=== PATIENT | male | born 1975 | race Caucasian/White ===

== ENCOUNTER 2019-06-26 12:34 | Emergency (ER) | payer OTHER ==
[2019-06-26] MEDS ORDERED: FENTANYL CITR 100 MCG/2 ML ONE (12:41)
[2019-06-26] MEDS ORDERED: TETANUS & DIPHTHERIA TOX,ADULT 0.5 ML VIAL ONE (12:41)
[2019-06-26 13:17] LABS: Absolute Lymphocytes (CBC) 1.3 K/uL (0.7-4.9); Basophils % 0.4 % (0-1.3); Hematocrit 40.8 % (39.6-49.0); Lymphocytes % 19.2 % (15.3-44.8); MPV 7.6 fL (7.6-11.3); RBC Red Blood Cell Count 4.66 M/uL (4.33-5.43)
[2019-06-26 13:31] LABS: BUN Blood Urea Nitrogen 17 mg/dL (7-18); Bicarbonate 25 mmol/L (21-32); Glucose Level 101 mg/dL (74-106); Potassium 3.8 mmol/L (3.5-5.1); Sodium Level 136 mmol/L (136-145)
[2019-06-26] MEDS ORDERED: NA CHLORIDE 0.9% 500 ML ONE (13:32)
--- NOTE | 2019-06-26 13:50 | RAD REPORT ---
EXAM DESCRIPTION: CT - Head C Spine Cap Lisa Comer - 06/26/2019 1:34 pm CLINICAL HISTORY: Fall, head and neck injury, chest abdomen and pelvis pain COMPARISON: None. TECHNIQUE: Axial [address] head images were obtained. Axial [address] cervical spine images were obtaine d with sagittal and coronal reconstruction images reviewed. During dynamic enhancement of 100mL non-i onic contrast, axial 5 mm images of the chest, abdomen and pelvis were obtained. All CT scans are performed using dose optimization technique as appropriate and may include automated exposure control or mA/KV adjustment according to patient size. FINDINGS: No intracranial hemorrhage, mass or edema. No midline shift or abnormal fluid collection. Mastoid air cells and paranasal sinuses are clear. No skull fracture. CT cervical spine imaging shows normal height. Normal alignment of the vertebrae. No disc space narro wing. No paraspinal mass or hematoma seen. Central canal detail is inherently limited. Concerns for t raumatic disc herniation or traumatic cord injury can be further addressed with MR imaging. CT chest shows no pneumothorax, pulmonary contusion or pleural fluid collection. No mediastinal hemat jamel and the aorta and pulmonary arteries are unremarkable. No chest will mass or abnormal axillary fi nding. No displaced rib fracture or other significant bony finding. CT abdomen and pelvis show no injury to solid abdominal viscera. Gallbladder and biliary tree are unr emarkable. No bowel injury or significant finding. No free air, free fluid or abnormal stranding. No urinary bladder abnormality. No compression fracture. L5-S1 disc and bone degenerative changes are present. IMPRESSION: No hemorrhage, edema or acute CT Head finding. No significant CT Cervical Spine finding. No significant CT Chest finding. No significant CT Abdomen and Pelvis finding.
[2019-06-26] MEDS ORDERED: HYDROCODONE/APAP 7.5/325 MG TAB ONE (14:40)
--- NOTE | 2019-06-26 14:43 | ER ---
Nurse's Notes [facility] Name: Ming Burt Age: 43 yrs Sex: Male : 1975 Arrival Date: 06/26/2019 Time: 12:37 Bed 3 Private MD: Diagnosis: Chest pain, unspecified;Other chest pain;Pain in left forearm;Abrasion of back wall of thorax;Abrasion of left forearm Presentation: 06/26 12:30 Presenting complaint: EMS states: pt was cutting a tree and the tree limb fell on tip jl7 of him, c/o left wrist, arm, chest and back pain. Care prior to arrival: Cervical collar in place. Splint applied. Medication(s) given: Tylenol, 1000 mg, IVP IV initiated. 20 GA, in the right hand. Mechanism of Injury: Crush injury from tree that had unknown weight. Extrication was not required. Patient was trapped for seconds. Trauma event details: Injury occurred in the [facility], Injury occurred: at home. Injury occurred: June 26, 2019 Injury occurred at: 11:25. 12:30 Acuity: MILLA 2 jl7 12:30 Method Of Arrival: [facility] jl7 12:30 Transition of care: patient was not received from another setting of care. Onset of jl7 symptoms was June 26, 2019 at 11:25. Risk Assessment: Do you want to hurt yourself or someone else? Patient reports no desire to harm self or others. Initial Sepsis Screen: Does the patient meet any 2 criteria? No. Patient's initial sepsis screen is negative. Does the patient have a suspected source of infection? No. Patient's initial sepsis screen is negative. Trauma Activation: Alert Physician: ED Physician; Name: ; Notified At: ; Arrived At: Physician: General Surgeon; Name: ; Notified At: ; Arrived At: Physician: Radiology; Name: ; Notified At: ; Arrived At: Physician: Respiratory; Name: ; Notified At: ; Arrived At: Physician: Lab; Name: ; Notified At: ; Arrived At: Historical: - Allergies: 13:25 No Known Allergies; jl7 - Home Meds: 13:25 unknown cholesterol medication [Active]; jl7 - PMHx: 13:25 High Cholesterol; jl7 - PSHx: 13:25 None; jl7 - Immunization history: Last tetanus immunization: unknown. - Social history:: Smoking status: Patient uses tobacco products, chewing tobacco. - Ebola Screening: : No symptoms or risks identified at this time. Screenin:00 Abuse screen: Denies threats or abuse. Denies injuries from another. Tuberculosis jl7 screening: No symptoms or risk factors identified. 13:27 Nutritional screening: No deficits noted. Fall Risk No fall in past 12 months (0 pts). jl7 No secondary diagnosis (0 pts). IV access (20 points). Ambulatory Aid- None/Bed Rest/Nurse Assist (0 pts). Gait- Normal/Bed Rest/Wheelchair (0 pts) Mental Status- Oriented to own ability (0 pts). Total Caballero Fall Scale indicates No Risk (0-24 pts). Primary Survey: 12:30 NO uncontrolled hemorrhage observed. Breathing/Chest: Respiratory pattern: regular, jl7 Respiratory effort: spontaneous, unlabored, Breath sounds: clear, Chest inspection: symmetrical rise and fall of the chest. Circulation: Heart tones present. Pulses: palpable right radial artery and left radial artery. Skin color: pink, Skin temperature: warm. Disability Alert. Exposure/Environment: There is no evidence of uncontrolled external bleeding. Obvious injury(ies) are noted at this time: laceration noted to left forearm, road rash noted to back and redness noted to chest. 12:45 Reassessment Breathing/Chest Respiratory pattern Regular Respiratory effort Spontaneous jl7 Unlabored Breath sounds Clear Chest inspection Symmetrical. Assessment: 12:30 General: Appears in no apparent distress. uncomfortable, Behavior is calm, cooperative, jl7 appropriate for age. Pain: Complains of pain in back, chest and left arm Pain currently is 8 out of 10 on a pain scale. Quality of pain is described as aching, Pain began 1 day ago. Is continuous. Neuro: Level of Consciousness is awake, alert, obeys commands, Oriented to person, place, time, situation. EENT: No signs and/or symptoms were reported regarding the EENT system. Cardiovascular: Heart tones present Patient's skin is warm and dry. Pulses are palpable in left radial artery. Respiratory: Airway is patent Respiratory effort is even, unlabored, Respiratory pattern is regular, symmetrical, Breath sounds are clear bilaterally. Derm: Skin is pink, warm \T\ dry. 13:30 Reassessment: Patient appears in no apparent distress at this time. No changes from jl7 previously documented assessment. Patient and/or family updated on plan of care and expected duration. Pain level reassessed. Patient is alert, oriented x 3, equal unlabored respirations, skin warm/dry/pink. 14:30 Reassessment: Patient appears in no apparent distress at this time. No changes from jl7 previously documented assessment. Patient and/or family updated on plan of care and expected duration. Pain level reassessed. Patient is alert, oriented x 3, equal unlabored respirations, skin warm/dry/pink. Vital Signs: 12:40 BP 132 / 89; Pulse 70; Resp 16 S; Temp 98.3(O); Pulse Ox 98% on R/A; Weight 74.84 kg jl7 (R); Height 5 ft. 5 in. (165.10 cm) (R); Pain 7/10; 13:00 BP 122 / 83; Pulse 65; Resp 17 S; Pulse Ox 98% on R/A; jl7 13:30 BP 125 / 80; Pulse 64; Resp 16 S; Pulse Ox 100% on R/A; jl7 14:30 BP 126 / 80; Pulse 65; Resp 16 S; Pulse Ox 100% on R/A; jl7 12:40 Body Mass Index 27.46 (74.84 kg, 165.10 cm) jl7 [place] Coma Score: 12:30 Eye Response: spontaneous(4). Verbal Response: oriented(5). Motor Response: obeys jl7 commands(6). Total: 15. Trauma Score (Adult): 12:30 Eye Response: spontaneous(1); Verbal Response: oriented(1); Motor Response: obeys jl7 commands(2); Systolic BP: > 89 mm Hg(4); Respiratory Rate: 10 to 29 per min(4); Lakeisha Score: 15; Trauma Score: 12 13:00 Eye Response: spontaneous(1); Verbal Response: oriented(1); Motor Response: obeys jl7 commands(2); Systolic BP: > 89 mm Hg(4); Respiratory Rate: 10 to 29 per min(4); Lakeisha Score: 15; Trauma Score: 12 13:30 Eye Response: spontaneous(1); Verbal Response: oriented(1); Motor Response: obeys jl7 commands(2); Systolic BP: > 89 mm Hg(4); Respiratory Rate: 10 to 29 per min(4); Lakeisha Score: 15; Trauma Score: 12 14:30 Eye Response: spontaneous(1); Verbal Response: oriented(1); Motor Response: obeys jl7 commands(2); Systolic BP: > 89 mm Hg(4); Respiratory Rate: 10 to 29 per min(4); [place] Score: 15; Trauma Score: 12 ED Course: 12:30 ED physician to see patient. jl7 12:37 Patient arrived in ED. iw 12:39 Lukas Chau MD is Attending Physician. kdr 12:46 Willie Dockery RN is Primary Nurse. jl7 12:56 Triage completed. jl7 13:00 Patient has correct armband on for positive identification. Bed in low position. Call jl7 light in reach. Side rails up X 1. 13:00 security monitor on. Pulse ox on. NIBP on. jl7 13:00 Patient maintains SpO2 saturation greater than 95% on room air. Thermoregulation: warm jl7 blanket given to patient. 13:00 No provider procedures requiring assistance completed. Maintain EMS IV. Dressing jl7 intact. Good blood return noted. Site clean \T\ dry. Gauge \T\ site: 20 right hand. 13:11 Forearm Left XRAY In Process Unspecified. EDMS 13:13 Shoulder Left (2 View) XRAY In Process Unspecified. EDMS 13:25 Arm band placed on right wrist. jl7 13:34 CT Traumagram (Head C Spine CAP W Con) In Process Unspecified. EDMS 13:34 CT completed. Patient tolerated procedure well. Patient moved back from CT. bq 15:14 Initial lab(s) drawn, by ny, sent to lab. IV discontinued, intact, bleeding controlled, jl7 No redness/swelling at site. Pressure dressing applied. Administered Medications: 12:50 Drug: Tetanus-Diphtheria Toxoid Adult 0.5 ml {[employer] Worker: [employer]. Exp: jl7 01/06/2021. Lot #: [id number]. } Route: IM; Site: right deltoid; 13:37 Follow up: Response: No adverse reaction jl7 12:50 Drug: fentaNYL (PF) 50 mcg Route: IVP; Site: right hand; jl7 13:00 Follow up: Response: No adverse reaction; Pain is decreased jl7 12:50 Drug: Zofran 4 mg Route: IVP; Site: right hand; jl7 13:00 Follow up: Response: No adverse reaction jl7 13:20 Drug: fentaNYL (PF) 50 mcg Route: IVP; Site: right hand; jl7 13:35 Follow up: Response: No adverse reaction; Pain is decreased jl7 14:15 Drug: NS 0.9% 500 ml Route: IV; Rate: bolus; Site: right hand; jl7 15:10 Follow up: Response: No adverse reaction; IV Status: Completed infusion; IV Intake: jl7 100ml 14:43 Drug: Francitas (7.5 mg-325 mg) 1 tabs Route: PO; jl7 15:10 Follow up: Response: No adverse reaction; Medication administered at discharge. jl7 Intake: 15:10 IV: 100ml; Total: 100ml. jl7 15:15 PO: 0ml; IV: 0ml; Tubes: 0ml (); Total: 100ml. jl7 Output: 15:15 Urine: 0ml; Gastric: 0ml; Stool: 0; EBL: 0ml; Drainage: 0ml; Other: 0; Total: 0ml. jl7 Outcome: 14:42 Discharge ordered by MD. kdr 15:14 Discharged to home ambulatory, with family. jl7 15:14 Condition: stable 15:14 Discharge instructions given to patient, family, Instructed on discharge instructions, follow up and referral plans. medication usage, Demonstrated understanding of instructions, follow-up care, medications, Prescriptions given X 2. 15:15 Patient's length of stay was not longer than 2 hours. jl7 15:15 Patient left the ED. jl7 Signatures: Dispatcher [employer] EDMS Lukas Chau MD MD kdr Quilty, Betty bq Williams, Irene, RN RN iw Leal, Jahala, RN RN bhakti
--- NOTE | 2019-06-26 14:43 | EDPHYS ---
Physician Documentation [facility] Name: Ming Burt Age: 43 yrs Sex: Male : 1975 Arrival Date: 06/26/2019 Time: 12:37 Bed 3 Private MD: ED Physician Lukas Chau HPI: 06/26 14:56 This 43 yrs old Male presents to ER via EMS with complaints of back and left kdr arm pain. 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 Onset: The kdr symptoms/episode began/occurred suddenly, just prior to arrival. Associated injuries: The patient sustained upper back injury, dorsal aspect of left forearm and palmar aspect of left forearm, abrasion. Severity of symptoms: in the emergency department the symptoms are unchanged. The patient has not experienced similar symptoms in the past. The patient has not recently seen a physician. 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 Historical: - Allergies: 13:25 No Known Allergies; jl7 - Home Meds: 13:25 unknown cholesterol medication [Active]; jl7 - PMHx: 13:25 High Cholesterol; jl7 - PSHx: 13:25 None; jl7 - Immunization history: Last tetanus immunization: unknown. - Social history:: Smoking status: Patient uses tobacco products, chewing tobacco. - Ebola Screening: : No symptoms or risks identified at this time. ROS: 14:56 Constitutional: Negative for fever, chills, and weight loss, Eyes: Negative for injury, kdr pain, redness, and discharge, ENT: Negative for injury, pain, and discharge, Neck: Negative for injury, pain, and swelling, Cardiovascular: Negative for chest pain, palpitations, and edema, Respiratory: Negative for shortness of breath, cough, wheezing, and pleuritic chest pain, Abdomen/GI: Negative for abdominal pain, nausea, vomiting, diarrhea, and constipation, : Negative for injury, bleeding, discharge, and swelling, Skin: Negative for rash, and discoloration, He does have multiple abrasions to his back and left Neuro: Negative for headache, weakness, numbness, tingling, and seizure activity. Psych: Negative for depression, anxiety, suicide ideation, homicidal ideation, and hallucinations, Allergy/Immunology: Negative for hives, rash, and allergies, Endocrine: Negative for neck swelling, polydipsia, polyuria, polyphagia, and marked weight changes, Hematologic/Lymphatic: Negative for swollen nodes, abnormal bleeding, and unusual bruising. 14:56 Back: Positive for pain at rest, pain with movement. Exam: 18:37 Constitutional: This is a well developed, well nourished patient who is awake, alert, kdr and in no acute distress. Head/Face: Normocephalic, atraumatic. Eyes: Pupils equal round and reactive to light, extra-ocular motions intact. Lids and lashes normal. Conjunctiva and sclera are non-icteric and not injected. Cornea within normal limits. Periorbital areas with no swelling, redness, or edema. Neck: Trachea midline, no thyromegaly or masses palpated, and no cervical lymphadenopathy. Supple, full range of motion without nuchal rigidity, or vertebral point tenderness. No Meningismus. Chest/axilla: Normal chest wall appearance and motion. Nontender with no deformity. No lesions are appreciated. Cardiovascular: Regular rate and rhythm with a normal S1 and S2. No gallops, murmurs, or rubs. Normal PMI, no JVD. No pulse deficits. Respiratory: Lungs have equal breath sounds bilaterally, clear to auscultation and percussion. No rales, rhonchi or wheezes noted. No increased work of breathing, no retractions or nasal flaring. Abdomen/GI: Soft, non-tender, with normal bowel sounds. No distension or tympany. No guarding or rebound. No evidence of tenderness throughout. Neuro: Awake and alert, GCS 15, oriented to person, place, time, and situation. Cranial nerves II-XII grossly intact. Motor strength 5/5 in all extremities. Sensory grossly intact. Cerebellar exam normal. Normal gait. Psych: Awake, alert, with orientation to person, place and time. Behavior, mood, and affect are within normal limits. 18:37 Back: The patient has multiple abrasions to his left back. 18:37 Musculoskeletal/extremity: The patient has abrasions to the left forearm and generally tender to palp - no current s/s of compartment syndrome. Vital Signs: 12:40 BP 132 / 89; Pulse 70; Resp 16 S; Temp 98.3(O); Pulse Ox 98% on R/A; Weight 74.84 kg jl7 (R); Height 5 ft. 5 in. (165.10 cm) (R); Pain 7/10; 13:00 BP 122 / 83; Pulse 65; Resp 17 S; Pulse Ox 98% on R/A; jl7 13:30 BP 125 / 80; Pulse 64; Resp 16 S; Pulse Ox 100% on R/A; jl7 14:30 BP 126 / 80; Pulse 65; Resp 16 S; Pulse Ox 100% on R/A; jl7 12:40 Body Mass Index 27.46 (74.84 kg, 165.10 cm) jl7 Lakeisha Coma Score: 12:30 Eye Response: spontaneous(4). Verbal Response: oriented(5). Motor Response: obeys jl7 commands(6). Total: 15. Trauma Score (Adult): 12:30 Eye Response: spontaneous(1); Verbal Response: oriented(1); Motor Response: obeys jl7 commands(2); Systolic BP: > 89 mm Hg(4); Respiratory Rate: 10 to 29 per min(4); Preble Score: 15; Trauma Score: 12 13:00 Eye Response: spontaneous(1); Verbal Response: oriented(1); Motor Response: obeys jl7 commands(2); Systolic BP: > 89 mm Hg(4); Respiratory Rate: 10 to 29 per min(4); Lakeisha Score: 15; Trauma Score: 12 13:30 Eye Response: spontaneous(1); Verbal Response: oriented(1); Motor Response: obeys jl7 commands(2); Systolic BP: > 89 mm Hg(4); Respiratory Rate: 10 to 29 per min(4); Preble Score: 15; Trauma Score: 12 14:30 Eye Response: spontaneous(1); Verbal Response: oriented(1); Motor Response: obeys jl7 commands(2); Systolic BP: > 89 mm Hg(4); Respiratory Rate: 10 to 29 per min(4); Preble Score: 15; Trauma Score: 12 MDM: 14:42 Patient medically screened. kdr 18:37 Data reviewed: vital signs, nurses notes, lab test result(s), EKG, radiologic studies. kdr Counseling: I had a detailed discussion with the patient and/or guardian regarding: the historical points, exam findings, and any diagnostic results supporting the discharge/admit diagnosis, lab results, radiology results, the need for outpatient follow up. 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 Exp: jl7 01/06/2021. Lot #: [id number]. } Route: IM; Site: right deltoid; 13:37 Follow up: Response: No adverse reaction jl7 12:50 Drug: fentaNYL (PF) 50 mcg Route: IVP; Site: right hand; jl7 13:00 Follow up: Response: No adverse reaction; Pain is decreased jl7 12:50 Drug: Zofran 4 mg Route: IVP; Site: right hand; jl7 13:00 Follow up: Response: No adverse reaction jl7 13:20 Drug: fentaNYL (PF) 50 mcg Route: IVP; Site: right hand; jl7 13:35 Follow up: Response: No adverse reaction; Pain is decreased jl7 14:15 Drug: NS 0.9% 500 ml Route: IV; Rate: bolus; Site: right hand; jl7 15:10 Follow up: Response: No adverse reaction; IV Status: Completed infusion; IV Intake: jl7 100ml 14:43 Drug: Beresford (7.5 mg-325 mg) 1 tabs Route: PO; jl7 15:10 Follow up: Response: No adverse reaction; Medication administered at discharge. jl7 Disposition: 06/26/19 14:42 Discharged to Home. Impression: Chest pain, unspecified, Other chest pain, Pain in left forearm, Abrasion of back wall of thorax, Abrasion of left forearm. - Condition is Stable. - Discharge Instructions: Musculoskeletal Pain, Chest Wall Pain, [id number], Contusion, [id number], Abrasion, [id number], Acute Compartment Syndrome. - Prescriptions for Tylenol- Codeine #3 300-30 mg Oral Tablet - take 2 tablet by ORAL route every 6 hours As needed; 30 tablet. Cyclobenzaprine 10 mg Oral Tablet - take 1 tablet by ORAL route every 8 hours As needed; 15 tablet. - Medication Reconciliation Form, Thank You Letter, Prescription Opioid Use, Work release form form. - Follow up: Private Physician; When: 2 - 3 days; Reason: If symptoms return, Further diagnostic work-up, Recheck today's complaints, Continuance of care, Re-evaluation by your physician. - Problem is new. - Symptoms have improved. Signatures: Dispatcher [employer] EDMS Lukas Chau MD MD [facility] Willie Dockery RN RN jl7 Corrections: (The following items were deleted from the chart) 15:15 14:42 06/26/2019 14:42 Discharged to Home. Impression: Chest pain, unspecified; Other jl7 chest pain; Pain in left forearm; Abrasion of back wall of thorax; Abrasion of left forearm. Condition is Stable. Forms are Medication Reconciliation Form, Thank You Letter, Antibiotic Education, Prescription Opioid Use. Follow up: Private Physician; When: 2 - 3 days; Reason: If symptoms return, Further diagnostic work-up, Recheck today's complaints, Continuance of care, Re-evaluation by your physician. Problem is new. Symptoms have improved. kdr
--- NOTE | 2019-06-26 14:47 | RAD REPORT ---
EXAM DESCRIPTION: RAD - Shoulder Left 2 View - 06/26/2019 1:11 pm CLINICAL HISTORY: Fall, left shoulder pain COMPARISON: None. TECHNIQUE: Internal and external rotation views of the left shoulder were obtained. FINDINGS: There is no fracture or dislocation. AC joint is normal in appearance. No acute or suspici ous findings. IMPRESSION: Negative two-view left shoulder examination.
--- NOTE | 2019-06-26 14:48 | RAD REPORT ---
EXAM DESCRIPTION: RAD - Forearm Left - 06/26/2019 1:11 pm CLINICAL HISTORY: Fall from tree, left arm pain COMPARISON: None. FINDINGS: No fracture is identified. There is no dislocation or periosteal reaction noted. No foreign body or other soft tissue abnormality. IMPRESSION: Negative left forearm examination.
[2019-06-26 16:07] VITALS: TEMP 98.3
[2019-06-26 16:10] VITALS: O2SAT 100
[2019-06-26 16:11] VITALS: BP 126/80
== END 2019-06-26 15:15 | disposition home or self-care (01) ==
LOC: ER 12:34
DX: S20.419A Abrasion of unspecified back wall of thorax, initial encounter (principal); S50.812A Abrasion of left forearm, initial encounter; R07.89 Other chest pain; W22.8XXA Striking against or struck by other objects, initial encounter; Y93.89 Activity, other specified; Y92.9 Unspecified place or not applicable; E78.00 Pure hypercholesterolemia, unspecified; F17.220 Nicotine dependence, chewing tobacco, uncomplicated; Z23 Encounter for immunization
CPT/HCPCS: 96361; 85025; 80048; 36415; 86900; 86850; 86901; 70450; 72125; 71260; 74177; 73090; 73030; 90471; 90714; 96375; 96374; 99285; Q9967; J3010; J7040

== ENCOUNTER 2019-09-19 09:20 | Emergency (ER) | payer OTHER ==
[2019-09-19] MEDS ORDERED: ASPIRIN 81 MG CHEWABLE TABLET ONE (09:41)
[2019-09-19 09:57] LABS: Absolute Lymphocytes (CBC) 1.2 K/uL (0.7-4.9); Basophils % 0.4 % (0-1.3); Hematocrit 43.1 % (39.6-49.0); Lymphocytes % 22.3 % (15.3-44.8); MPV 7.6 fL (7.6-11.3); RBC Red Blood Cell Count 4.81 M/uL (4.33-5.43)
[2019-09-19] MEDS ORDERED: FENTANYL CITR 100 MCG/2 ML ONE (09:59)
[2019-09-19] MEDS ORDERED: PANTOPRAZOLE 40 MG INJ ONE (09:59)
[2019-09-19] MEDS ORDERED: ONDANSETRON 4 MG/2 ML VIAL ONE (09:59)
[2019-09-19] MEDS ORDERED: NA CHLORIDE 0.9% 1,000 ML ONE (09:59)
[2019-09-19 10:12] LABS: Protime INR 1.05
[2019-09-19 10:15] LABS: ALT/SGPT 26 U/L (12-78); AST/SGOT 18 U/L (15-37); Albumin 4.2 g/dL (3.4-5.0); Alkaline Phosphatase 72 U/L (45-117); BUN Blood Urea Nitrogen 10 mg/dL (7-18); Bicarbonate 29 mmol/L (21-32); Bilirubin Direct 0.2 mg/dL (0-0.2); Bilirubin Total 0.8 mg/dL (0.2-1.0); Glucose Level 97 mg/dL (74-106); Magnesium 2.2 mg/dL (1.8-2.4); NT PRO-BNP 24 pg/mL (<125); Protein, Total 7.6 g/dL (6.4-8.2); Sodium Level 138 mmol/L (136-145); Troponin (Emerg Dept Use Only) < 0.02 ng/mL (0.0-0.045)
--- NOTE | 2019-09-19 10:36 | RAD REPORT ---
EXAM DESCRIPTION: RAD - Chest Single View - 09/19/2019 10:28 am CLINICAL HISTORY: CHEST PAIN Chest pain. COMPARISON: No comparisons FINDINGS: Portable technique limits examination quality. The lungs are grossly clear. The heart is normal in size. No displaced fractures. IMPRESSION: No acute intrathoracic process suspected.
[2019-09-19 10:46] LABS: Blood Morphology Comment NOT SEEN (NOT SEEN); Platelet Estimate ADEQ; Urine White Blood Cell Casts OK
--- NOTE | 2019-09-19 11:04 | EDPHYS ---
Physician Documentation [facility] Name: Ming Burt Age: 43 yrs Sex: Male : 1975 Arrival Date: 09/19/2019 Time: 09:24 Bed 8 Private MD: ED Physician Alvin Yadav HPI: 09/19 09:40 This 43 yrs old Male presents to ER via Wheelchair with complaints of Chest cp Pain. 09:40 The patient or guardian reports chest pain that is located primarily in the anterior cp chest wall, left. Historical: - Allergies: 10:58 No Known Allergies; ah - Home Meds: 10:58 unknown cholesterol medication [Active]; ah - PMHx: 10:58 High Cholesterol; - Immunization history:: Flu vaccine is not up to date. Patient has never been vaccinated. - Coronavirus screen:: The patient has NOT traveled to [place] in the past 14 days. The patient has NOT had contact with known/suspected case of Coronavirus?. - Social history:: Smoking status: Patient reports use of chewing tobacco. - Ebola Screening: : No symptoms or risks identified at this time. ROS: 09:45 Constitutional: Negative for body aches, chills, fever, poor PO intake. cp 09:45 Eyes: Negative for injury, pain, redness, and discharge. cp Exam: 09:41 ECG was reviewed by the Attending Physician. cp 09:50 Constitutional: The patient appears in no acute distress, alert, awake, cp non-diaphoretic, non-toxic, well developed, well nourished. 09:50 Head/Face: Normocephalic, atraumatic. cp 09:50 Eyes: Periorbital structures: appear normal, Conjunctiva: normal, no exudate, no injection, Lids and lashes: appear normal, bilaterally. 09:50 ENT: External ear(s): are unremarkable, Nose: is normal, Mouth: Lips: moist, Oral mucosa: pink and intact, moist, Posterior pharynx: is normal, airway is patent, no erythema, no exudate. 09:50 Neck: ROM/movement: is normal, is supple, without pain, no range of motions limitations, no nuchal rigidity. 09:50 Chest/axilla: Inspection: normal, Palpation: is normal, no crepitus, no tenderness. 09:50 Cardiovascular: Rate: normal, Rhythm: regular, Pulses: Pulses are 2+ in right radial artery and left radial artery. Edema: is not appreciated, JVD: is not appreciated. 09:50 Respiratory: the patient does not display signs of respiratory distress, Respirations: normal, no use of accessory muscles, no retractions, labored breathing, is not present, Breath sounds: are clear throughout, no decreased breath sounds, no stridor, no wheezing. 09:50 Abdomen/GI: Inspection: abdomen appears normal, Bowel sounds: active, all quadrants, Palpation: abdomen is soft and non-tender, in all quadrants, rebound tenderness, is not appreciated, voluntary guarding, is not appreciated, involuntary guarding, is not appreciated. 09:50 Back: pain, is absent, ROM is normal. 09:50 Skin: no rash present. 09:50 Neuro: Orientation: to person, place \T\ time. Mentation: is normal, Cerebellar function: is grossly normal, Motor: moves all fours, strength is normal, Sensation: no obvious gross deficits. 12:50 ECG was reviewed by the Attending Physician. cp Vital Signs: 09:31 BP 130 / 85; Pulse 79; Resp 16; Temp 97.5; Pulse Ox 100% ; Weight 68.04 kg; Height 5 ah ft. 5 in. (165.10 cm); Pain 6/10; 09:55 BP 114 / 80 LA; Pulse 70; Resp 12; Pulse Ox 97% on R/A; mh5 09:55 BP 109 / 81 RA; Pulse 69; Resp 15; Pulse Ox 99% on R/A; mh5 10:18 BP 112 / 77; Pulse 67; Resp 15; Pulse Ox 100% on R/A; sv 11:00 BP 106 / 76; Pulse 61; Resp 16; Pulse Ox 100% ; sv 11:45 BP 125 / 89; Pulse 94; Resp 16; Pulse Ox 100% ; sv 12:30 BP 115 / 81; Pulse 69 MON; Resp 17; Pulse Ox 100% ; sv 13:17 BP 116 / 81; Pulse 57; Resp 16; Pulse Ox 99% ; sv 09:31 Body Mass Index 24.96 (68.04 kg, 165.10 cm) ah 12:30 Sinus Rhythm sv MDM: 09:29 Patient medically screened. morteza 13:20 Physician consultation: Timothy Breaux DO was called at 11:15, was contacted at 11:15, cp regarding admission, to the telemetry unit. patient's condition, would like further tests performed, CT chest and abdomen, Patient evaluated by DR Breaux in ED and recommends outpatient f/u if with repeat troponin being negative. Believes chest pain is musculoskeletal in nature and patient has pain medications at home. 13:24 The patient was given aspirin in the Emergency Department. cp 13:24 Data reviewed: vital signs, nurses notes, lab test result(s), EKG, radiologic studies, cp CT scan, plain films, and as a result, I will discharge patient. Test interpretation: by ED physician or midlevel provider: ECG, plain radiologic studies, chest xray negative for infiltrates. Counseling: I had a detailed discussion with the patient and/or guardian regarding: the historical points, exam findings, and any diagnostic results supporting the discharge/admit diagnosis, lab results, radiology results, the need for outpatient follow up, a family practitioner, to return to the emergency department if symptoms worsen or persist or if there are any questions or concerns that arise at home. 09/19 09:34 Order name: Basic Metabolic Panel cp 09/19 09:34 Order name: CBC with Diff cp 09/19 09:34 Order name: LFT's cp 09/19 09:34 Order name: Magnesium cp 09/19 09:34 Order name: NT PRO-BNP cp 09/19 09:34 Order name: PT-INR cp 09/19 09:34 Order name: Troponin (emerg Dept Use Only) cp 09/19 09:39 Order name: D-Dimer cp 09/19 09:40 Order name: Lipase cp 09/19 09:58 Order name: CBC with Automated Diff; Complete Time: 10:56 EDMS 09/19 10:56 Interpretation: Normal except: MN% 15.9. cp 09/19 10:07 Order name: Lipase; Complete Time: 10:56 EDMS 09/19 10:07 Order name: D-Dimer; Complete Time: 10:56 EDMS 09/19 10:14 Order name: Protime (+INR); Complete Time: 10:56 EDMS 09/19 10:17 Order name: Basic Metabolic Panel; Complete Time: 10:56 EDMS 09/19 10:56 Interpretation: Normal except: GFR 87. cp 09/19 09:34 Order name: XRAY Chest (1 view) cp 09/19 10:17 Order name: Liver (Hepatic) Function; Complete Time: 10:56 EDMS 09/19 10:17 Order name: Troponin (Emerg Dept Use Only); Complete Time: 10:56 EDMS 09/19 10:17 Order name: NT PRO-BNP; Complete Time: 10:56 EDMS 09/19 10:17 Order name: Magnesium; Complete Time: 10:56 EDMS 09/19 10:47 Order name: CBC Smear Scan; Complete Time: 10:56 EDMS 09/19 11:22 Order name: CT Chest, Abdomen, Pelvis - W/Contrast cp 09/19 11:39 Order name: RAD; Complete Time: 12:14 EDMS 09/19 12:14 Order name: CT; Complete Time: 12:14 EDUT 09/19 12:15 Order name: Troponin I; Complete Time: 13:20 cp 09/19 13:20 Interpretation: Reviewed. cp 09/19 09:34 Order name: EKG; Complete Time: 09:36 cp 09/19 09:34 Order name: Cardiac monitoring; Complete Time: 09:29 cp 09/19 09:34 Order name: EKG - Nurse/Tech; Complete Time: 09:47 cp 09/19 09:34 Order name: IV Saline Lock; Complete Time: 09:46 cp 09/19 09:34 Order name: Labs collected and sent; Complete Time: 09:47 cp 09/19 09:34 Order name: O2 Per Protocol; Complete Time: 09:47 cp 09/19 09:34 Order name: O2 Sat Monitoring; Complete Time: 09:47 cp 09/19 09:42 Order name: Blood Pressure Recheck: bilateral upper extremities; Complete Time: 09:57 cp 09/19 12:15 Order name: EKG; Complete Time: 12:15 cp 09/19 12:15 Order name: EKG - Nurse/Tech; Complete Time: 12:44 cp EC:41 Rate is 74 beats/min. MN interval is normal. QRS interval is normal. QT interval is cp normal. T waves are Flattened in lead aVL. Interpreted by me. Reviewed by me. 12:50 Rate is 62 beats/min. Rhythm is regular. MN interval is normal. QRS interval is normal. cp QT interval is normal. T waves are Flattened in lead aVL. Interpreted by me. Reviewed by me. Administered Medications: 09:35 Drug: Aspirin Chewable Tablet 324 mg Route: PO; ah 10:40 Follow up: Response: No adverse reaction ah 10:00 Drug: ProTONIX 40 mg Route: IVP; Site: right antecubital; ah 11:00 Follow up: Response: No adverse reaction ah 10:00 Drug: Zofran 4 mg Route: IVP; Site: right antecubital; ah 11:00 Follow up: Response: No adverse reaction 10:00 Drug: fentaNYL (PF) 25 mcg {Note: RASS 0 .} Route: IVP; Site: right antecubital; ah 11:00 Follow up: Response: No adverse reaction; Pain is decreased ah 10:00 Drug: NS 0.9% 1000 ml Route: IV; Rate: 1 bolus; Site: right antecubital; 11:49 Follow up: Response: No adverse reaction; IV Status: Completed infusion; IV Intake: ah 1000ml 11:05 CANCELLED (Physician Discretion): TORadol - Ketorolac 15 mg IVP once 11:48 Drug: GI Cocktail without - (Maalox Suspension 30 ml, Lidocaine Liquid 2 % 15 ah ml) Route: PO; 12:15 Follow up: Response: No adverse reaction; Pain is decreased 13:35 CANCELLED (Physician Discretion): morphine 2 mg IVP once; RASS on ADMIN: Combtv4, Very sv Agttd3, Agttd2, Rstlss1, AlertClm0, Drwsy-1, Lt Sdtn-2, Mod Sdtn-3, Dp Sdtn-4, UnArsble-5 Disposition: 09/19/19 13:24 Discharged to Home. Impression: Chest pain, unspecified. - Condition is Stable. - Discharge Instructions: Nonspecific Chest Pain, Aspirin and Your Heart. - Prescriptions for Diclofenac Sodium 75 mg Oral Tablet Sustained Release - take 1 tablet by ORAL route 2 times per day; 30 tablet. - Work release form, Family Work Release, Medication Reconciliation Form, Thank You Letter, Antibiotic Education, Prescription Opioid Use form. - Follow up: Private Physician; When: 1 - 2 days; Reason: Recheck today's complaints. - Problem is new. - Symptoms have improved. Addendum: 09/21/2019 08:35 Co-signature as Attending Physician, Alvin Yadav MD I agree with the assessment and c gupta plan of care. Signatures: Dispatcher [employer] Echo Mckeon, RN RN Alvin Bañuelos MD MD cha Page, Corey, PA PA cp Amada Howell, RN RN tw2 Tracy Johnson RN RN Corrections: (The following items were deleted from the chart) 09/19 11:05 11:03 TORadol - Ketorolac 15 mg IVP once ordered. cp cp 13:24 11:03 Hospitalization Ordered by Timothy Breaux DO for Observation. Preliminary cp diagnosis is Chest pain, unspecified. Bed requested for Telemetry/MedSurg (observation). Status is Observation. Condition is Stable. Problem is new. Symptoms are unchanged. cp 13:35 11:05 morphine 2 mg IVP once; RASS on ADMIN: Combtv4, Very Agttd3, Agttd2, Rstlss1, sv AlertClm0, Drwsy-1, Lt Sdtn-2, Mod Sdtn-3, Dp Sdtn-4, UnArsble-5 ordered. cp 13:35 13:35 morphine 2 mg IVP once; RASS on ADMIN: Combtv4, Very Agttd3, Agttd2, Rstlss1, sv AlertClm0, Drwsy-1, Lt Sdtn-2, Mod Sdtn-3, Dp Sdtn-4, UnArsble-5 ordered. sv 13:55 13:24 09/19/2019 13:24 Discharged to Home. Impression: Chest pain, unspecified. tw2 Condition is Stable. Forms are Medication Reconciliation Form, Thank You Letter, Antibiotic Education, Prescription Opioid Use. Follow up: Private Physician; When: 1 - 2 days; Reason: Recheck today's complaints. Problem is new. Symptoms have improved. cp
--- NOTE | 2019-09-19 11:04 | ER ---
Nurse's Notes [facility] Name: Ming Burt Age: 43 yrs Sex: Male : 1975 Arrival Date: 09/19/2019 Time: 09:24 Bed 8 Private MD: Diagnosis: Chest pain, unspecified Presentation: 09/19 09:28 Presenting complaint: Patient states: chest pain started on Thursday night, he took ah nexium and tums with no relief. He states that it hurts to cough and to take a deep breath. The Pain is constant and it is starting to hurt on left side towards neck. Transition of care: patient was not received from another setting of care. Onset of symptoms was September 17, 2019. Risk Assessment: Do you want to hurt yourself or someone else? Patient reports no desire to harm self or others. Initial Sepsis Screen: Does the patient meet any 2 criteria? No. Patient's initial sepsis screen is negative. Care prior to arrival: None. 09:28 Method Of Arrival: Wheelchair 09:28 Acuity: MILLA 3 09:35 Note Pt states that he takes a cholesterol pill does not know the name of it. 13:54 Initial Sepsis Screen: Does the patient have a suspected source of infection? No. tw2 Patient's initial sepsis screen is negative. Triage Assessment: 09:32 General: Appears in no apparent distress. Behavior is calm, cooperative. Pain: Complains of pain in left supraclavicular area, xyphoid area and mid-sternal area Pain radiates to left neck Pain currently is 6 out of 10 on a pain scale. Quality of pain is described as pressure, tender, Pain began 2-3 days ago. Is continuous, Alleviated by nothing. EENT: No signs and/or symptoms were reported regarding the EENT system. Neuro: Level of Consciousness is awake, alert, obeys commands, Oriented to person, place, time, situation, Chief Librarian Branch are equal bilaterally. Cardiovascular: Reports chest pain. Respiratory: Reports hurts to take a deep breath. GI: No signs and/or symptoms were reported involving the gastrointestinal system. : No signs and/or symptoms were reported regarding the genitourinary system. Derm: Skin is intact, is healthy with good turgor. Historical: - Allergies: 10:58 No Known Allergies; ah - Home Meds: 10:58 unknown cholesterol medication [Active]; - PMHx: 10:58 High Cholesterol; - Immunization history:: Flu vaccine is not up to date. Patient has never been vaccinated. - Coronavirus screen:: The patient has NOT traveled to [place] in the past 14 days. The patient has NOT had contact with known/suspected case of Coronavirus?. - Social history:: Smoking status: Patient reports use of chewing tobacco. - Ebola Screening: : No symptoms or risks identified at this time. Screenin:55 Abuse screen: Denies threats or abuse. Nutritional screening: No deficits noted. Tuberculosis screening: No symptoms or risk factors identified. Fall Risk None identified. Assessment: 10:29 General: Appears in no apparent distress. Behavior is calm, cooperative. Pain: ah Complains of pain in xyphoid area and mid-sternal area Pain radiates to left neck Pain currently is 6 out of 10 on a pain scale. Quality of pain is described as pressure, tender, Pain began 2-3 days ago. Is continuous. Neuro: Level of Consciousness is awake, alert, Oriented to person, place, time, situation, Chief Librarian Branch are equal bilaterally Moves all extremities. Speech is normal. Cardiovascular: Heart tones S1 S2 present Capillary refill < 3 seconds Patient's skin is warm and dry. Pulses are palpable in right radial artery, right dorsalis pedis artery, left radial artery and left dorsalis pedis artery Rhythm is sinus rhythm. Respiratory: Airway is patent Respiratory effort is even, unlabored, Respiratory pattern is regular, Breath sounds are clear bilaterally. Denies cough, pain with cough and deep breath. GI: Abdomen is Bowel sounds present X 4 quads. : No signs and/or symptoms were reported regarding the genitourinary system. EENT: No signs and/or symptoms were reported regarding the EENT system. Derm: No signs and/or symptoms reported regarding the dermatologic system. Musculoskeletal: No signs and/or symptoms reported regarding the musculoskeletal system. 10:56 Reassessment: Patient appears in no apparent distress at this time. Patient and/or ah family updated on plan of care and expected duration. Pain level reassessed. Patient is alert, oriented x 3, equal unlabored respirations, skin warm/dry/pink. Patient states symptoms have improved. 13:54 Reassessment: Patient appears in no apparent distress at this time. Patient and/or tw2 family updated on plan of care and expected duration. Pain level reassessed. Patient is alert, oriented x 3, equal unlabored respirations, skin warm/dry/pink. Vital Signs: 09:31 BP 130 / 85; Pulse 79; Resp 16; Temp 97.5; Pulse Ox 100% ; Weight 68.04 kg; Height 5 ah ft. 5 in. (165.10 cm); Pain 6/10; 09:55 BP 114 / 80 LA; Pulse 70; Resp 12; Pulse Ox 97% on R/A; mh5 09:55 BP 109 / 81 RA; Pulse 69; Resp 15; Pulse Ox 99% on R/A; mh5 10:18 BP 112 / 77; Pulse 67; Resp 15; Pulse Ox 100% on R/A; sv 11:00 BP 106 / 76; Pulse 61; Resp 16; Pulse Ox 100% ; sv 11:45 BP 125 / 89; Pulse 94; Resp 16; Pulse Ox 100% ; sv 12:30 BP 115 / 81; Pulse 69 MON; Resp 17; Pulse Ox 100% ; sv 13:17 BP 116 / 81; Pulse 57; Resp 16; Pulse Ox 99% ; sv 09:31 Body Mass Index 24.96 (68.04 kg, 165.10 cm) ah 12:30 Sinus Rhythm sv ED Course: 09:24 Patient arrived in ED. ag5 09:28 Alvin Pacheco PA is PHCP. cp 09:28 Alvin Yadav MD is Attending Physician. cp 09:28 Tracy Johnson, RN is Primary Nurse. sv 09:30 Triage completed. ah 09:46 EKG done, by bio medical technician. reviewed by Alvin HALL. at1 09:48 Arm band placed on. sv 09:57 Patient has correct armband on for positive identification. Placed in gown. Bed in low mh5 position. Call light in reach. Side rails up X 1. Adult w/ patient. Warm blanket given. quality assurance monitor body on. Pulse ox on. NIBP on. 10:00 Inserted saline lock: 20 gauge in right antecubital area, using aseptic technique. ah 10:03 D-Dimer Sent. sv 10:04 Lipase Sent. sv 10:04 Basic Metabolic Panel Sent. sv 10:04 CBC with Diff Sent. sv 10:04 LFT's Sent. sv 10:04 Magnesium Sent. sv 10:04 NT PRO-BNP Sent. sv 10:04 PT-INR Sent. sv 10:04 Troponin (emerg Dept Use Only) Sent. sv 10:19 XRAY Chest (1 view) Sent. sv 11:02 Timothy Breaux DO is Hospitalizing Provider. cp 11:02 Patient maintains SpO2 saturation greater than 95% on room air. ah 11:[address] Patient moved back from CT. ah 12:36 CT Chest, Abdomen, Pelvis - W/Contrast Sent. sv 12:57 Troponin I Sent. sv 13:54 No provider procedures requiring assistance completed. IV discontinued, intact, tw2 bleeding controlled, No redness/swelling at site. Pressure dressing applied. Administered Medications: 09:35 Drug: Aspirin Chewable Tablet 324 mg Route: PO; ah 10:40 Follow up: Response: No adverse reaction ah 10:00 Drug: ProTONIX 40 mg Route: IVP; Site: right antecubital; ah 11:00 Follow up: Response: No adverse reaction ah 10:00 Drug: Zofran 4 mg Route: IVP; Site: right antecubital; ah 11:00 Follow up: Response: No adverse reaction ah 10:00 Drug: fentaNYL (PF) 25 mcg {Note: RASS 0 .} Route: IVP; Site: right antecubital; 11:00 Follow up: Response: No adverse reaction; Pain is decreased ah 10:00 Drug: NS 0.9% 1000 ml Route: IV; Rate: 1 bolus; Site: right antecubital; ah 11:49 Follow up: Response: No adverse reaction; IV Status: Completed infusion; IV Intake: ah 1000ml 11:05 CANCELLED (Physician Discretion): TORadol - Ketorolac 15 mg IVP once cp 11:48 Drug: GI Cocktail without - (Maalox Suspension 30 ml, Lidocaine Liquid 2 % 15 ah ml) Route: PO; 12:15 Follow up: Response: No adverse reaction; Pain is decreased 13:35 CANCELLED (Physician Discretion): morphine 2 mg IVP once; RASS on ADMIN: Combtv4, Very sv Agttd3, Agttd2, Rstlss1, AlertClm0, Drwsy-1, Lt Sdtn-2, Mod Sdtn-3, Dp Sdtn-4, UnArsble-5 Intake: 11:49 IV: 1000ml; Total: 1000ml. Outcome: 11:03 Decision to Hospitalize by Provider. cp 13:24 Discharge ordered by MD. cp 13:54 Discharged to home ambulatory. tw2 13:54 Condition: stable 13:54 Discharge instructions given to patient, Instructed on discharge instructions, follow up and referral plans. no drinking with medication, no driving heavy equipment, medication usage, Demonstrated understanding of instructions, follow-up care, medications, Prescriptions given X 1. 13:55 Patient left the ED. tw2 Signatures: Echo De La Vega, RN RN Angelica Cota, supplier engineer EKG Tat1 Alvin Pacheco PA PA cp Wise, Tara, RN RN tw2 Samara Ellis [facility] Marco Vincent [facility] Tracy Johnson, RN RN Corrections: (The following items were deleted from the chart) 11:01 10:00 fentaNYL (PF) 25 mcg IVP in right antecubital [facility]
[2019-09-19] MEDS ORDERED: MORPHINE 2 MG/ML SYR ONE (11:11)
[2019-09-19] MEDS ORDERED: LIDOCAINE VISCOUS 2% SOLN 15 ML UDC ONE (11:46)
[2019-09-19] MEDS ORDERED: MAGNE/ALUM HYDROXD 30 ML UCUP ONE (11:46)
--- NOTE | 2019-09-19 11:54 | RAD REPORT ---
EXAM DESCRIPTION: CT - Chest Abdomen Pelvis W Cont - 09/19/2019 11:38 am CLINICAL HISTORY: Chest and abdomen pain. abdominal pain;Chest pain COMPARISON: No comparisons TECHNIQUE: Approximately 100 mL nonionic IV contrast was administered to the patient. All CT scans are performed using dose optimization technique as appropriate and may include automated exposure control or mA/KV adjustment according to patient size. FINDINGS: The lungs are clear.No pleural or pericardial effusion.No intrathoracic adenopathy. The liver, spleen, pancreas, adrenal glands and kidneys are within normal limits. No bowel obstruction, free air, free fluid or abscess. Normal appendix. No pathologic lymphadenopath y in the abdomen or pelvis. Prostate gland is enlarged with large dystrophic calcifications. No worrisome osseous finding. IMPRESSION: No acute abnormality detected.
[2019-09-19 14:08] VITALS: TEMP 97.5
[2019-09-19 14:16] VITALS: BP 116/81; O2SAT 99
--- NOTE | 2019-09-19 14:30 | P.CNS ---
Date of Consult: 09/19/19 Reason for Consult: ER Evaluation for possible Admission Requesting Physician: Alvin Pacheco Primary Care Provider: Dr. Ramos Chief Complaint: Epigastric/chest pain History of Present Illness: 43-year-old male with history of hyperlipidemia and GERD. Patient presented with epigastric abdominal pain that radiated to the left chest wall area near the ribcage. He reported that this started this morning. It was tender to touch. Some shortness of breath noted with defect. He denied any nausea, vomiting. The patient further reported that he ate steak on Thursday , had buffalo wings on Thursday and pizza on Thursday. He further reported increased activity over the weekend. He had placed outside door to his home. He was lifting a door and plywood. He further reports recent injury in June of last year after he had accident where a tree branch fell on his back. He was seen by the ER at that time and discharge. In the ER patient was evaluated. EKG shows no significant EKG changes. Initial troponin unremarkable. 2nd troponin negative. CBC, BMP unremarkable. Chest x-ray unremarkable. CT scan of the chest, abdomen and pelvis was done. Lungs clear. No pericardial effusion noted. Abdominal contents unremarkable. Prostate gland was enlarged with large dystrophic calcifications. I was asked to see the patient for possible admission. When I saw the patient ER, pain improved. Pain was reported with flexion of his abdominal wall. Patient had point tenderness near the epigastric region following the left ribcage. Patient did not appear diaphoretic. Blood pressures within normal range. Vital signs stable. Patient has reported increased indigestion. He had taken some Tums and Nexium over the weekend. Patient drinks on occasion. He does dip tobacco and vapes. Home medications list reviewed: Yes - Past Medical/Surgical History Diabetic: No -: Hyperlipidemia -: GERD Past Surgical History: Patient denies surgical history Psychosocial/ Personal History: Patient is . 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 - Family History Mother Medical History: Heart disease Father Medical History: Other (see notes) (Parkinson's and dementia) - Social History Smoking Status: Light Tobacco smoker (1-9 cigarettes/day) Counseled patient to stop smoking for: less than 10 minutes Smoking therapy provided: Yes Patient receptive to therapy: Yes Alcohol use: Yes CD- Drugs: No Caffeine use: Yes Place of Residence: Home Review of Systems General: As per HPI Eyes: Unremarkable ENT: Unremarkable Respiratory: Unremarkable Cardiovascular: Chest Pain, As per HPI Gastrointestinal: Unremarkable Genitourinary: Unremarkable Musculoskeletal: Shoulder Pain, Arm Pain, Back Pain, As per HPI Integumentary: Unremarkable Neurological: Unremarkable Lymphatics: Unremarkable Physical Examination Temp Pulse Resp BP Pulse Ox 97.5 F 57 16 116/81 09/19/19 09:31 09/19/19 13:17 09/19/19 13:17 09/19/19 13:17 General: Alert, In no apparent distress, Oriented x3, Cooperative HEENT: Atraumatic, Normocephalic, PERRLA, Mucous membr. moist/pink Neck: Supple, No Thyromegaly Respiratory: Clear to auscultation bilaterally, Normal air movement Cardiovascular: Normal pulses, Regular rate/rhythm Gastrointestinal: Normal bowel sounds, Soft and benign, Non-distended, No tenderness, No masses, No rebound, No guarding Musculoskeletal: Other (Patient had point tenderness to the epigastric region. Pain also followed along the lower ribcage region on the left side. Upon flexion of his abdomen he reported pain. Abdomen was soft. Patient also had pain to the left shoulder region. He reported point tenderness to the epigastric and left lower ribcage region whenever he tried to touch his right shoulder with his left hand.) Neurological: Normal speech, Normal strength at 5/5 x4 extr, Normal tone, Normal affect Laboratory Data (last 24 hrs) 09/19/19 12:23: Troponin I < 0.02 09/19/19 09:45: Lipase 81 09/19/19 09:45: PT 12.4, INR 1.05 09/19/19 09:45: WBC 5.3, Hgb 14.6, Hct 43.1, Plt Count 214 09/19/19 09:45: Sodium 138, Potassium 4.0, BUN 10, Creatinine 0.94, Glucose 97, Magnesium 2.2, Total Bilirubin 0.8, AST 18, ALT 26, Alkaline Phosphatase 72 Conclusions/Impression: Impression: Epigastric/chest pain suspect musculoskeletal Possible underlying GERD Hyperlipidemia Tobacco abuse CT scan showing enlarged prostate with calcifications Plan: Epigastric/chest pain suspect musculoskeletal: Patient evaluated in the emergency room. Repeat cardiac enzymes unremarkable. No significant EKG changes noted. Case discussed with ER provider. Chest pain likely musculoskeletal due to recent excessive activity and lifting. Patient has leftover pain medication and muscle relaxer from a back injury in June 2017. Patient may continue with these medications. He may take nonsteroidal anti-inflammatory for pain. Recommend follow up with his PCP in the next day for follow up. I was able to speak to his PCP concerning patient. If chest pain persists patient may require cardiac workup but heart score-1. I do not suspect cardiac disease. Patient is not need to be admitted for further evaluation. Will recommend discharge from the ER. As mentioned above patient may continue with medication for pain and muscle relaxer. Will limit activity. Recommend stretching exercises. Patient will follow up with his PCP tomorrow. Possible underlying GERD: Recommend healthier heart healthy diet. Decrease fatty foods and red meat. Will recommend to continue Nexium. Will recommend GI evaluation as an outpatient to further evaluate. Hyperlipidemia: Patient takes Crestor. Patient may continue with his medication. After speaking to his PCP his cholesterol level has been well controlled. Tobacco abuse: Tobacco cessation addressed in detail with the patient. Patient plans to quit. CT scan showing enlarged prostate with calcifications: Patient will need close follow up with his PCP. Will recommend PSA to further evaluate. Patient may require Urology evaluation to further address. Time Spent Managing Pts care (In Minutes): 55
--- NOTE | 2019-09-19 15:25 | EKG ---
Test Date: 2019-09-19 Test Time: 12:50:00 Productivity Engineer: RAHAT MEASUREMENT RESULTS: Intervals: Rate: 62 PA: 162 QRSD: 82 QT: 388 QTc: 393 [place]: P: 66 PA: 162 QRS: 68 T: 62 INTERPRETIVE STATEMENTS: Normal sinus rhythm with sinus arrhythmia Normal ECG Compared to ECG 02/05/1993 11:25:00 No significant changes Electronically Signed On 09-19-19 15:25:21 TEST ENGINEERING MANAGER by Carlos Johnson
--- NOTE | 2019-09-19 15:27 | EKG ---
Test Date: 2019-09-19 Test Time: 09:33:29 Stock Fitter: MICHAEL MEASUREMENT RESULTS: Intervals: Rate: 74 ME: 164 QRSD: 82 QT: 354 QTc: 392 [place]: P: 72 ME: 164 QRS: 73 T: 64 INTERPRETIVE STATEMENTS: Normal sinus rhythm with sinus arrhythmia Normal ECG Compared to ECG 02/05/1993 11:25:00 No significant changes Electronically Signed On 09-19-19 15:27:09 CEMENTER MACHINE APPLICATOR by Carlos Johnson
== END 2019-09-19 13:55 | disposition home or self-care (01) ==
LOC: ER 09:20
DX: R07.9 Chest pain, unspecified (principal); E78.00 Pure hypercholesterolemia, unspecified; F17.220 Nicotine dependence, chewing tobacco, uncomplicated
CPT/HCPCS: 96361; 93005 ×2; 85025; 80048; 36415; 83735; 85610; 85379; 80076; 84484 ×2; 83690; 83880; 71260; 74177; 71045; 96375; 96374; 99285; Q9967; C9113; J3010; J7030; J2405; J2270